=== PATIENT | male | born 2000 | race Two or more races ===

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

== ENCOUNTER 2025-07-31 06:13 | Emergency (ER) | payer MEDICAID ==
[~2025-07-31] VITALS: Ht 180.3 cm; Wt 82.8 kg
[2025-07-31 06:15] VITALS: TEMP 99.7
--- NOTE | 2025-07-31 07:36 | DVH ---
EXAM: XY R HAND 3 VIEW XRAY CLINICAL INDICATION: Crushed injury to thumb TECHNIQUE: XY R HAND 3 VIEW XRAY Comparison: None FINDINGS/IMPRESSION: There is no evidence of acute fracture or dislocation. The visualized joint space is well maintained. The alignment is anatomical. There is no radiopaque foreign body.
[2025-07-31] MEDS: TETANUS-DIPTH-ACEL PERTUSSIS 0.5ML SYR Tdap IM ONE (07:45)
[2025-07-31] MEDS: cefTRIAXone SOD 1,000 MG VL IM ONE (07:46)
[2025-07-31 08:00] LABS: Hematocrit 42.1 % (41.0-53.0); Hemoglobin 15.0 g/dL (13.5-17.5); Mean Corpuscular Hemoglobin 30.7 pg (28.0-32.0); Mean Corpuscular Volume 86.3 fL (80.0-100.0); Nucleated Red Blood Cells % 0.1 %
[2025-07-31 08:03] LABS: Chloride 98 mmol/L (98-107); Potassium 3.9 mmol/L (3.5-5.1)
[2025-07-31 08:04] LABS: Anion Gap 10 (5-15); Carbon Dioxide 27 mmol/L (20-31)
[2025-07-31 08:05] LABS: Calcium 9.3 mg/dL (8.7-10.4)
[2025-07-31 08:09] LABS: BUN/Creatinine Ratio 9.7 (10.0-20.0); Glucose 93 mg/dL (74-106)
[2025-07-31] MEDS: LIDOCAINE 1% HCL (LOCAL ANESTH.) INJ 20ML MDV ID ONE (08:09)
[2025-07-31 08:10] LABS: Blood Urea Nitrogen 9 mg/dL (9-23); Sodium 135 mmol/L (136-145)
[2025-07-31] MEDS ORDERED: NAPR-746 PO (08:32)
[2025-07-31] MEDS ORDERED: CIPR-173 PO (08:32)
--- NOTE | 2025-07-31 08:32 | ED.PDOC ---
Musculoskeletal HPI Comments This is a pleasant 25-year-old male with a pertinent MHx that presents for a puncture wound to the right thumb Patient reports he stepped his right thumb two days ago while working on breaks, specifically on a metal piece used to hold the breakdown. The injury is now painful and stiff making it difficult to bend the thumb. The pain radiates to the forearm. This is his 1st time seeking medical attention for this injury. Has not attempted any formal treatment but tried to squeeze the area when it got injured. Last tetanus shot unknown Chief Complaint: Upper Extremity Time Seen by MD: 06:30 Reviewed Notes: Nurses Notes, Medications, Allergies Allergies: Coded Allergies: NO KNOWN ALLERGIES (Unverified , 02/10/18) Information Source: Patient Mode of Arrival: Ambulatory Past Medical History PAST MEDICAL HISTORY: Asthma Surgical History: Denies all surgeries Family History Family History: Unknown Social History Smoker: Non-Smoker Alcohol: Denies ETOH Use Drugs: Denies Drug Use Lives In: Home All Other Systems: Reviewed and Negative (Per HPI) Physical Exam General Appearance: No Apparent Distress, Normal HEENT: Normal ENT Inspection, Pharynx Normal, TMs Normal Neck: Full Range of Motion, Non-Tender, Normal, Normal Inspection Respiratory: Chest Non-Tender, Lungs Clear, No Accessory Muscle Use, No Respiratory Distress, Normal Breath Sounds Cardiovascular: No Edema, No JVD, No Murmur, No Gallop, Normal Peripheral Pulses, Regular Rate/Rhythm Breast Exam: Deferred Gastrointestinal: No Organomegaly, Non Tender, No Pulsatile Mass, Normal Bowel Sounds, Soft Genitalia: Deferred Pelvic: Deferred Rectal: Deferred Extremities: No calf tenderness, Normal capillary refill, Normal inspection, Normal range of motion, Non-tender, No pedal edema Musculoskeletal : Apperance: Normal Neurologic: Alert, ad operations specialist II-XII nml as Tested, No Motor Deficits, Normal Affect, Normal Mood, No Sensory Deficits Cerebellar Function: Normal Reflexes: Normal Skin: Dry, Normal Color, Warm Lymphatic: No Adenopathy Was a procedure done? Was a procedure done?: No Images 1 - 1 mm puncture wound. Localized surrounding erythema. No fluctuance no drainage no streaking. Full ROM of the thumb. Neurovascular sensation intact and cap refill less than 3 seconds. Radial pulses 2+ Differential Diagnosis EXT Differential Diagnosis: Cellulitis, Sprain, Other X-Ray, Labs, Meds, VS Vital Signs Date Time Temp Pulse Resp B/P (MAP) Pulse Ox O2 Delivery O2 Flow Rate FiO2 07/31/25 07:30 58 18 98 Room Air 07/31/25 07:30 58 18 126/80 (95) 98 07/31/25 06:15 99.7 84 16 132/77 97 99.7 Lab Test 07/31/25 07:37 Range/Units White Blood Count 9.1 4.4-10.8 10^3/uL Red Blood Count 4.88 4.5-5.90 10^6/uL Hemoglobin 15.0 13.5-17.5 g/dL Hematocrit 42.1 41.0-53.0 % Mean Corpuscular Volume 86.3 80.0-100.0 fL Mean Corpuscular Hemoglobin 30.7 28.0-32.0 pg Mean Corpuscular Hemoglobin Concent 35.6 32.0-36.0 g/dL Red Cell Distribution Width 13.1 11.8-14.3 % Platelet Count 220 140-450 10^3/uL Mean Platelet Volume 7.9 6.9-10.8 fL Neutrophils (%) (Auto) 72.0 37.0-80.0 % Lymphocytes (%) (Auto) 15.9 10.0-50.0 % Monocytes (%) (Auto) 11.4 0.0-12.0 % Eosinophils (%) (Auto) 0.1 0.0-7.0 % Basophils (%) (Auto) 0.6 0.0-2.0 % Neutrophils # (Auto) 6.6 1.6-8.6 10 ^3/uL Lymphocytes # (Auto) 1.5 0.4-5.4 10 ^3/uL Monocytes # (Auto) 1.0 0-1.3 10 ^3/uL Eosinophils # (Auto) 0 0-0.8 10 ^3/uL Basophils # (Auto) 0.1 0-0.2 10 ^3/uL Nucleated Red Blood Cells 0.1 % Sodium Level 135 L 136-145 mmol/L Potassium Level 3.9 3.5-5.1 mmol/L Chloride Level 98 98-107 mmol/L Carbon Dioxide Level 27 20-31 mmol/L Anion Gap 10 5-15 Blood Urea Nitrogen 9 9-23 mg/dL Creatinine 0.93 0.700-1.30 mg/dL Glomerular Filtration Rate Calc 118 >90 mL/min BUN/Creatinine Ratio 9.7 L 10.0-20.0 Serum Glucose 93 74-106 mg/dL Calcium Level 9.3 8.7-10.4 mg/dL Current Medications Medications (Trade) Dose Ordered Sig/Josh Route Start Time Stop Time Status Last Admin Ceftriaxone Sodium (Rocephin) 1,000 mg ONCE ONCE IM 07/31/25 07:45 07/31/25 07:46 DC 07/31/25 07:46 Diphtheria/ Tetanus/Acell Pertussis (Boostrix T-Dap) 0.5 ml ONCE ONCE IM 07/31/25 07:45 07/31/25 07:46 DC 07/31/25 07:45 Lidocaine HCl (Xylocaine 1%) 2 ml ONCE ONCE ID 07/31/25 07:45 07/31/25 08:06 DC 07/31/25 08:09 X-Ray, Labs, Meds, VS Comment This is a pleasant 25-year-old male with a pertinent MHx that presents for a puncture wound to the right thumb Patient arrives alert and oriented, ABC's intact, afebrile, vital signs stable, saturating well in room air CBC was ordered to exclude anemia, blood loss, or infection. BMP was ordered to exclude electrolyte abnormalities, renal failure, dehydration, hyperglycemia Diagnostic imaging ordered by me and results interpreted by radiology : X-ray showed no acute findings. Labs in the ED were reassuring Patient was given: Rocephin for broad-spectrum antibiotics. Tetanus shot was updated. Tolerated medications with no adverse reaction. Prescribed p.o. antibiotics for presentation of symptoms Complete course of antibiotic therapy even if symptoms improve or resolve. There should be no leftover antibiotics as this can lead to antibiotic resistant bacteria and even worse infection. Patient verbalized understanding. Potential side effects discussed with patient including abdominal pain, nausea, diarrhea. Recommended probiotics and return precautions given Persistent diarrhea Dehydration Blood in stool Ill-appearing On reevaluation, patient had symptomatic improvement. Patient is stable for discharge at this time. External notes reviewed. Test results and diagnostic imaging interpreted. All diagnostic findings, discharge care, education and instructions provided Follow-up with PCP in 2 to 3 days Patient verbalized understanding and agreed to treatment plan Vital signs stable, afebrile, no acute distress noted Patient ambulatory with strong steady gait Advised to return precautions for any new or worsening symptoms, return to ER immediately for re-evaluation Patient is aware that the purpose of this visit was for an acute medical emergency requiring emergent stabilization. Chronic conditions, including malignancies have not been ruled out. Patient is instructed to follow up with PCP as directed and discharge instructions for continued care and workup. If unable to arrange follow-up, patient is to return to the emergency department for reassessment. Patient (parent or legal guardian if applicable) was given verbal and written discharge instructions and acknowledges understanding.............. Additional MDM Review of External, Non-ED records: External records reviewed. Discussion with independent historian (EMS, family) history obtained from the patient/parents (if applicable) at bedside Chronic conditions affecting care: None Social determinants of health affecting care: None Consideration of admission (observation or admission): I considered escalation of care to admission for this patient, however given the reassuring workup, the patient is safe for outpatient management. Time of 1ST Reevaluation: 08:29 Reevaluation 1ST: Improved Patient Education/Counseling: Diagnosis, Treatment Family Education/Counseling: Diagnosis, Treatment Departure 1 Departure Time of Disposition: 08:30 Impression: Primary Impression: Cellulitis of thumb, right Disposition: 01 HOME / SELF CARE / HOMELESS Condition: Stable e-Prescriptions Naproxen (Naproxen) 500 Mg Tab 500 MG PO BID for 10 Days, #20 TAB 0 Refills Prov: VKNG ISAAC NP 07/31/25 Ciprofloxacin Hcl (Cipro) 500 Mg Tab 1 TAB PO BID for 7 Days, #14 TAB 0 Refills Prov: KVNG ISAAC NP 07/31/25 Discharged With: Self Critical Care Note Critical Care Time?: No Stability Stability form required: No Heart Score Heart Score: Heart Score Response (Comments) Value History N/A 0 EKG N/A 0 Age N/A 0 Risk Factors N/A 0 Troponin N/A 0 Total 0 KVNG ISAAC NP Jul 31, 2025 08:32
[2025-07-31 08:41] VITALS: BP 142/79; PULSE 60; RESP 18; O2SAT 99
== END 2025-07-31 08:45 | disposition home or self-care (01) ==
LOC: ER 06:13
DX: S61.031A Puncture wound without foreign body of right thumb without damage to nail, initial encounter (principal); L03.011 Cellulitis of right finger; J45.909 Unspecified asthma, uncomplicated; X58.XXXA Exposure to other specified factors, initial encounter; Y93.89 Activity, other specified; Y92.89 Other specified places as the place of occurrence of the external cause; Y99.8 Other external cause status
CPT/HCPCS: 36415; 73130; 80048; 85025; 90471; 90715; 96372; 99284; J0696; J2003

== ENCOUNTER 2025-09-18 14:53 | Emergency (ER) | payer MEDICAID ==
[~2025-09-18] VITALS: Ht 180.3 cm; Wt 82.3 kg
[~2025-09-18 14:53] MED LIST: CIPR-173 PO; NAPR-746 PO
[2025-09-18 14:54] VITALS: BP 137/96; PULSE 91; RESP 18; TEMP 98.1; O2SAT 100
== END 2025-09-18 19:23 | disposition left against medical advice (07) ==
LOC: ER 14:53
DX: K92.2 Gastrointestinal hemorrhage, unspecified (principal); Z53.21 Procedure and treatment not carried out due to patient leaving prior to being seen by health care provider

== ENCOUNTER 2025-09-19 10:14 | Emergency (ER) | payer MEDICAID ==
[~2025-09-19] VITALS: Ht 180.3 cm; Wt 80.1 kg
[2025-09-19 10:15] VITALS: BP 123/46; PULSE 90; RESP 18; TEMP 98.4; O2SAT 99
[2025-09-19] MEDS ORDERED: ONDANSETRON HCL 4 MG/2 ML VIAL IV ONE (11:00)
[2025-09-19] MEDS ORDERED: SODIUM CHLORIDE 0.9% 1,000 ML IV ONE (11:00)
[2025-09-19] MEDS ORDERED: PANTOPRAZOLE 40 MG/10 ML VIAL INJ IV ONE (11:00)
--- NOTE | 2025-09-19 11:11 | ED.PDOC ---
GI ASSESSMENT HPI Comments 25 y/o M, with PMHx of polysubstance abuse and alcohol abuse, presents to the ED for CC of GI Bleed. Patient states, that he has been having blood streaked bowels accompanied by hematemesis x1day. Patient reports, to have had x4-5 episodes of "dark" colored emesis today (09/19/25). When asked about blood in his stool 1st he states that his stool is green, then states that it is dark. Patient denies abdominal pain, fatigue, weakness, or dizziness. No other symptoms or modifying factors are present at this time. Chief Complaint: GI Bleed Time Seen by MD: 11:00 Reviewed Notes: Nurses Notes, Medications, Allergies Allergies: Coded Allergies: Aloe (Verified Allergy, Unknown, 09/18/25) Ibuprofen (Verified Allergy, Unknown, 09/18/25) Home Meds Active Scripts Naproxen (Naproxen) 500 Mg Tab, 500 MG PO BID for 10 Days, #20 TAB 0 Refills Prov:KVNG ISAAC NP 07/31/25 Ciprofloxacin Hcl (Cipro) 500 Mg Tab, 1 TAB PO BID for 7 Days, #14 TAB 0 Refills Prov:KVNG ISAAC DIRECTOR ELECTRONICS 07/31/25 Information Source: Patient Mode of Arrival: Ambulatory Timing: Days Duration: Since onset Prehospital treatment: None Vomitus: Other (black) Stool: Blood Streaked Severity: Moderate Recent: None Recent Hx of: None Pain Location: None Modifying Factors: Nothing Associated sign and symptoms: Vomiting, Blood in Stool Past Medical History PAST MEDICAL HISTORY: Asthma Surgical History: Denies all surgeries Family History Family History: Unknown Social History Smoker: Non-Smoker Alcohol: Heavy Drugs: Other (Acid) Lives In: Home Constitutional: denies: chills, diaphoresis, fatigue, fever, malaise, sweats, weakness, others EENTM: denies: blurred vision, double vision, ear bleeding, ear discharge, ear drainage, ear pain, ear ringing, eye pain, eye redness, hearing loss, mouth pain, mouth swelling, nasal discharge, nose bleeding, nose congestion, nose pain, photophobia, tearing, throat pain, throat swelling, voice changes, others Respiratory: denies: cough, hemoptysis, orthopnea, SOB at rest, shortness of breath, SOB with excertion, stridor, wheezing, others Cardiovascular: denies: chest pain, dizzy spells, diaphoresis, Dyspnea on exertion, edema, irregular heart beat, left arm pain, lightheadedness, palpitations, PND, syncope, others Gastrointestinal: reports: blood streaked bowels, vomiting; denies: abdomen distended, abdominal pain, constipated, diarrhea, dysphagia, difficulty swall owing, hematemesis, melena, nausea, poor appetite, poor fluid intake, rectal bleeding, rectal pain, others Genitourinary: denies: burning, dysuria, flank pain, frequency, hematuria, incontinence, penile discharge, penile sore, pain, testicle pain, testicle swelling, urgency, others Neurological: denies: dizziness, fainting, headache, left sided numbness, left sided weakness, numbness, paresthesia, pre-existing deficit, right sided numbness, right sided weakness, seizure, speech problems, tingling, tremors, weakness, others Musculoskeletal: denies: back pain, gout, joint pain, joint swelling, muscle pain, muscle stiffness, neck pain, others Integumetry: denies: bruises, change in color, change in hair/nails, dryness, laceration, lesions, lumps, rash, wounds, others Allergic/Immunocompromised: denies: Difficulty Healing, Frequent Infections, Hives, Itching, others Hematologic/Lymphatic: denies: anemia, blood clots, easy bleeding, easy bruising, swollen glands, others Endocrine: denies: excessive hunger, excessive sweating, excessive thirst, excessive urination, flushing, intolerance to cold, intolerance to heat, unexplained weight gain, unexplained weight loss, others Psychiatric: denies: anxiety, bipolar disorder, depression, hopeless, panic disorder, schizophrenia, sleepless, suicidal, others All Other Systems: Reviewed and Negative Physical Exam General Appearance: No Apparent Distress, Normal HEENT: Normal ENT Inspection, Pharynx Normal Neck: Full Range of Motion, Non-Tender, Normal, Normal Inspection Respiratory: Chest Non-Tender, Lungs Clear, No Accessory Muscle Use, No Respiratory Distress, Normal Breath Sounds Cardiovascular: No Edema, No Murmur, No Gallop, Normal Peripheral Pulses, Regular Rate/Rhythm Breast Exam: Deferred Gastrointestinal: No Organomegaly, Non Tender, No Pulsatile Mass, Normal Bowel Sounds, Soft, Other (No blood noted along oropharynx) Genitalia: Deferred Pelvic: Deferred Rectal: Deferred, Other (rectal exam deferred by patient) Extremities: No calf tenderness, Normal capillary refill, Normal inspection, Normal range of motion, Non-tender, No pedal edema Musculoskeletal : Apperance: Normal Neurologic: Alert, netbackup admin II-XII nml as Tested, No Motor Deficits, Normal Affect, Normal Mood, No Sensory Deficits Cerebellar Function: Normal Reflexes: Normal Skin: Dry, Normal Color, Warm Lymphatic: No Adenopathy Was a procedure done? Was a procedure done?: No GI differential Dx Differential Diagnosis: Gastritis/PUD, Gastroenteritis, GI hemorrhage, Inflammatory BD, Bacterial, Viral X-Ray, Labs, Meds, VS Vital Signs Date Time Temp Pulse Resp B/P (MAP) Pulse Ox O2 Delivery O2 Flow Rate FiO2 09/19/25 10:15 98.4 90 18 123/46 99 98.4 Lab Test 09/19/25 11:04 Range/Units White Blood Count 4.4 4.4-10.8 10^3/uL Red Blood Count 5.27 4.5-5.90 10^6/uL Hemoglobin 16.6 13.5-17.5 g/dL Hematocrit 48.0 41.0-53.0 % Mean Corpuscular Volume 91.0 80.0-100.0 fL Mean Corpuscular Hemoglobin 31.4 28.0-32.0 pg Mean Corpuscular Hemoglobin Concent 34.5 32.0-36.0 g/dL Red Cell Distribution Width 14.9 H 11.8-14.3 % Platelet Count 314 140-450 10^3/uL Mean Platelet Volume 7.4 6.9-10.8 fL Neutrophils (%) (Auto) 44.6 37.0-80.0 % Lymphocytes (%) (Auto) 42.9 10.0-50.0 % Monocytes (%) (Auto) 10.9 0.0-12.0 % Eosinophils (%) (Auto) 0.7 0.0-7.0 % Basophils (%) (Auto) 0.9 0.0-2.0 % Neutrophils # (Auto) 2.0 1.6-8.6 10 ^3/uL Lymphocytes # (Auto) 1.9 0.4-5.4 10 ^3/uL Monocytes # (Auto) 0.5 0-1.3 10 ^3/uL Eosinophils # (Auto) 0 0-0.8 10 ^3/uL Basophils # (Auto) 0 0-0.2 10 ^3/uL Nucleated Red Blood Cells 0.1 % Sodium Level 146 H 136-145 mmol/L Potassium Level 3.7 3.5-5.1 mmol/L Chloride Level 105 98-107 mmol/L Carbon Dioxide Level 29 20-31 mmol/L Anion Gap 12 5-15 Blood Urea Nitrogen < 5 L 9-23 mg/dL Creatinine 0.90 0.700-1.30 mg/dL Glomerular Filtration Rate Calc 122 >90 mL/min BUN/Creatinine Ratio 5.6 L 10.0-20.0 Serum Glucose 96 74-106 mg/dL Calcium Level 9.5 8.7-10.4 mg/dL Lipase 42 12-53 U/L Plasma/Serum Blood Alcohol 358.4 H <10 mg/dL Time of 1ST Reevaluation: 11:30 Reevaluation 1ST: Unchanged Patient Education/Counseling: Diagnosis, Treatment Family Education/Counseling: No Family Present SEPSIS Sepsis Screen Date sepsis recognized/suspect: Sep 19, 2025 Time Sepsis recognized/suspect: 1017 Recent Procedure: No (T) On Antibiotic Therapy: No (N) Respiratory Rate >20: No Heart Rate >90: No Temp<36 C (96.8 F) or >38.3 C: No SBP <90 or MAP <65 mmHG: No New Acute Mental Status Change: No Is the patient on CPAP, BIPAP,: No Vital Signs Date Time Temp Pulse Resp B/P (MAP) Pulse Ox O2 Delivery O2 Flow Rate FiO2 09/19/25 10:15 98.4 90 18 123/46 99 98.4 Laboratory Tests Test 09/19/25 11:04 White Blood Count 4.4 10^3/uL (4.4-10.8) Departure 1 Departure Time of Disposition: 12:01 (25 y/o M, with PMHx of polysubstance abuse and alcohol abuse, presents to the ED for CC of GI Bleed. Patient reports symptoms that have been ongoing for 2 days. Reporting vomiting dark blood, however, has no blood noted within the or pharynx. Given patient's history of alcohol abuse suspect likely erosive gastritis, possible so bleeding peptic ulcer. Patient not having any bright red vomiting, not concerning for esophageal varices bleeding at this time. Reporting hematemesis, however, has no abdominal pain. Given the nausea and vomiting in the setting of alcohol abuse consider pancreatitis, however, lipase is within normal limits. Patient reporting hematemesis and possible bloody stool. However, hemoglobin is completely within normal limits. Do not suspect any brisk bleeding, arrives with normal vitals, does not require serial CBCs as I do not suspect significant blood loss. Patient's alcohol level is elevate in the 300s. He is currently intoxicated and also stating that he is under the influence of acid. He was ordered 1 L normal saline IV fluid bolus, IV Zofran, IV Protonix. Patient has been advised on alcohol use cessation as this is likely the cause of his symptoms today. I recommended a possible admission for endoscopy given his history of alcohol abuse and reported upper GI bleeding. However, patient declined. Patient will be discharged as requested.) Impression: Primary Impression: Hematemesis Additional Impressions: Upper GI bleeding Alcohol intoxication Alcohol abuse Disposition: HOME / SELF CARE / HOMELESS Condition: Stable Discharged With: Self Critical Care Note Critical Care Time?: No Stability Stability form required: No Heart Score Heart Score: Heart Score Response (Comments) Value History N/A 0 EKG N/A 0 Age N/A 0 Risk Factors N/A 0 Troponin N/A 0 Total 0 I personally scribed for ESA MERRILL MD ([email or web address]) on 09/19/25 at 11:11. Electronically submitted by Nubia Carroll ([email or web address]). ESA MERRILL MD Sep 19, 2025 11:11
[2025-09-19 11:23] LABS: Hematocrit 48.0 % (41.0-53.0); Hemoglobin 16.6 g/dL (13.5-17.5); Mean Corpuscular Hemoglobin 31.4 pg (28.0-32.0); Mean Corpuscular Volume 91.0 fL (80.0-100.0); Nucleated Red Blood Cells % 0.1 %
[2025-09-19 11:27] LABS: Chloride 105 mmol/L (98-107); Potassium 3.7 mmol/L (3.5-5.1)
[2025-09-19 11:28] LABS: Anion Gap 12 (5-15); Calcium 9.5 mg/dL (8.7-10.4); Carbon Dioxide 29 mmol/L (20-31)
[2025-09-19 11:29] LABS: Sodium 146 mmol/L (136-145)
[2025-09-19 11:33] LABS: Glucose 96 mg/dL (74-106); Lipase 42.0 U/L (12-53)
[2025-09-19 11:34] LABS: BUN/Creatinine Ratio 5.6 (10.0-20.0); Blood Urea Nitrogen < 5 mg/dL (9-23)
== END 2025-09-19 16:28 | disposition home or self-care (01) ==
LOC: ER 10:14
DX: K92.0 Hematemesis (principal); F10.129 Alcohol abuse with intoxication, unspecified; J45.909 Unspecified asthma, uncomplicated; Z88.6 Allergy status to analgesic agent; Y90.9 Presence of alcohol in blood, level not specified
CPT/HCPCS: 36415; 80048; 80320; 83690; 85025